=== PATIENT | female | born 1950 | race Two or more races ===

== ENCOUNTER 2024-11-04 20:25 | Emergency (ER) | payer MEDICARE, OTHER ==
[~2024-11-04] VITALS: Ht 162.6 cm; Wt 82.6 kg
[2024-11-04 22:25] VITALS: BP 130/70; TEMP 98; O2SAT 95
== END 2024-11-04 22:26 | disposition home or self-care (01) ==
LOC: ER 20:32
DX: S69.91XA Unspecified injury of right wrist, hand and finger(s), initial encounter (principal); W01.0XXA Fall on same level from slipping, tripping and stumbling without subsequent striking against object, initial encounter; Y93.89 Activity, other specified; Y92.89 Other specified places as the place of occurrence of the external cause; Y99.9 Unspecified external cause status
CPT/HCPCS: 73090-TC; 73110